=== PATIENT | female | born 1945 | race Caucasian/White ===

== ENCOUNTER 2019-09-21 19:10 | Inpatient (IN) | payer MEDICARE, BC ==
[2019-09-21] MEDS ORDERED: Morphine 4 MG/ML VIAL ONE (20:03)
[2019-09-21] MEDS ORDERED: Ketorolac Tromethamine 30 MG/ML VIAL ONE (20:12)
[2019-09-21] MEDS ORDERED: Acetaminophen 1,000 MG in Premix Bag 1 BAG IVPB SCH (20:15)
[2019-09-21] MEDS ORDERED: Dextrose 50% Abboject 50 ML SYRINGE SLOW IVP PRN (20:24)
[2019-09-21] MEDS ORDERED: hydrALAZINE 20 MG/ML VIAL SLOW IVP PRN (20:24)
[2019-09-21] MEDS ORDERED: Ondansetron PF 4 MG/2 ML Vial IVP PRN (20:24)
[2019-09-21] MEDS ORDERED: Dextrose 5% in Water 1,000 ML IV PRN (20:24)
[2019-09-21] MEDS ORDERED: Promethazine HCl 25 MG/ML VIAL IVPB PRN (20:24)
[2019-09-21] MEDS ORDERED: Morphine 2 MG/ML SYRINGE SLOW IVP PRN (20:24)
[2019-09-21] MEDS ORDERED: traMADol HCl 50 MG TAB PO PRN (20:27)
[2019-09-21] MEDS ORDERED: Cyclobenzaprine 10 MG TAB PO PRN (20:27)
[2019-09-21] MEDS ORDERED: Ondansetron PF 4 MG/2 ML Vial ONE (20:51)
[2019-09-21] MEDS: Acetaminophen 500 MG TAB PO SCH (22:45)
[2019-09-21] MEDS: Ibuprofen 600 MG TAB PO SCH (23:22)
[2019-09-21 23:25] VITALS: BMI 29.1
[2019-09-22] MEDS: Senokot S 8.6-50 MG TAB PO SCH ×3 (00:18→21:01)
[2019-09-22] MEDS: Acetaminophen 500 MG TAB PO SCH ×4 (03:40→21:01)
[2019-09-22] MEDS: Ibuprofen 600 MG TAB PO SCH ×3 (05:22→22:24)
[2019-09-22 05:36] LABS: #Eosinphils 0.1 thou/uL (0.0-0.7); #Lymphocytes 1.3 thou/uL (1.20-3.40); #Monocytes 0.5 thou/uL (0.11-0.59); #Neutrophils 3.9 thou/uL (1.40-6.50); %Basophils 0.2 % (0.0-1.0); %Eosinophils 1.1 % (0.0-10.0); %Lymphocytes 22.6 % (21.0-51.0); %Monocytes 8.3 % (0.0-10.0); %Neutrophils 67.8 % (42.0-75.0); Hemoglobin 11.3 g/dL (12.0-16.0); Mean Corpuscular HGB CONC 33.6 g/dL (32.0-36.0); Mean Corpuscular Hemoglobin 29.9 pg (27.0-31.0); Mean Corpuscular Volume 88.9 fL (78.0-98.0); Platelet Count 196 thou/uL (130-400); RBC Distribution Width 13.1 % (11.5-14.5); Red Blood Cell (RBC) Count 3.79 mill/uL (4.20-5.40); White Blood Cell (WBC) Count 5.7 thou/uL (4.8-10.8)
[2019-09-22 05:48] LABS: Anion Gap 11 mmol/L (10-20); BUN (Urea Nitrogen) 14 mg/dL (9.8-20.1); Calc. Creatinine Clearance 74 mL/min (70-130); Calcium 8.3 mg/dL (7.8-10.44); Carbon Dioxide 28 mmol/L (23-31); Chloride 107 mmol/L (98-107); Estimated GFR-MDRD 60; Glucose 84 mg/dL (83-110); Magnesium 1.8 mg/dL (1.6-2.6); Phosphorus 4.1 mg/dL (2.3-4.7); Potassium 3.6 mmol/L (3.5-5.1); Sodium 142 mmol/L (136-145)
[2019-09-22] MEDS ORDERED: Amiodarone 200 MG TAB PO SCH (09:00)
[2019-09-22] MEDS ORDERED: FLU VACC TS2019-20(65YR UP)/PF 180 MCG/0.5 ML SYRINGE IM ONE (09:00)
[2019-09-22] MEDS ORDERED: oxyCODONE/Acetaminophen 5 mg/325 mg Tablet PO PRN (09:03)
[2019-09-22] MEDS ORDERED: Tranexamic Acid 1,000 MG in Sodium Chloride 0.9% 100 ML IVPB SCH (09:15)
[2019-09-22] MEDS ORDERED: CEFAZOLIN 2 GM in Premix Bag 1 BAG IVPB SCH (09:15)
[2019-09-22] MEDS ORDERED: Vancomycin HCl 1.5 GM in Sodium Chloride 0.9% 250 ML 300 ML IVPB SCH (09:15)
[2019-09-22] MEDS: Levothyroxine Sodium 25 MCG TAB PO SCH (09:26)
[2019-09-22] MEDS: Polyethylene Glycol 3350 17 GM Packet PO SCH (09:26)
--- NOTE | 2019-09-22 09:40 | RAD ---
XR Hip Rt 2-3 View HISTORY: Hip injury COMPARISON: None. FINDINGS: There is a right femoral neck fracture, the fracture is more subcapital in location. The jose nicanor appear demineralized. IMPRESSION: Right femoral neck fracture.
--- NOTE | 2019-09-22 10:12 | CON ---
DATE OF CONSULTATION: 09/22/2019 This is Apryl Brian PA-C dictating a report for Ricky Bronson MD. REQUESTING PHYSICIAN: Trauma Services. CONSULTING PHYSICIAN: Ricky Bronson MD. REASON FOR CONSULTATION: Right hip fracture. HISTORY OF PRESENT ILLNESS: This is a 74-year-old female, who was cooking in the kitchen with her granddaughter last night when she fell off a small step stool, landing on her buttock and right hip. She presented to the [facility] by way of ground EMS. She was found to have what it has been reported as a right femoral neck fracture with displacement. She was transferred to our facility as she has requested Dr. Carrizales. Dr. Carrizales has worked on her , replacing multiple joints and he is well known to their family. Currently at bedside, the patient states that she has pain, relieved with rest that reported in her right hip. Past medical history includes atrial fibrillation, for which she takes Eliquis. Otherwise, she is pretty healthy. She states that Dr. Carrizales was contacted yesterday in [facility], but was out of town in [place]. Today, she is stating that she is happy for anyone to fix her hip at this time. No numbness or tingling. No head injury reported. No loss of consciousness. PAST MEDICAL HISTORY: Significant for atrial fibrillation. PAST SURGICAL HISTORY: Left wrist surgery, appendectomy, tonsillectomy, tubal ligation. SOCIAL HISTORY: The patient lives at home with her . She has a son and grandson nearby. She is a nonsmoker and nondrinker. She is retired. She independently ambulates. FAMILY HISTORY: Reviewed and noncontributory. REVIEW OF SYSTEMS: Ten-point review of systems conducted and otherwise negative except for stated above. PHYSICAL EXAMINATION: VITAL SIGNS: Temperature 98.3, pulse of 56, respiratory rate of 16, blood pressure 92/60, and O2 saturations 98% on 3 L nasal cannula. GENERAL: The patient is awake and alert. She is in no apparent distress. She is pleasant and cooperative with exam today. There is currently no family at bedside. HEENT: Head is normocephalic and atraumatic. NECK: Supple. Trachea midline. Breathing nonlabored. MUSCULOSKELETAL: Evaluation of bilateral lower extremities shows skin to be intact. Evaluation of the right hip shows no significant ecchymosis. Pain with log roll. She is able to move her knee and her foot and toes. Distal neurovascular status intact. DIAGNOSTIC STUDIES: Radiographic imaging from [facility] has been reported as a right femoral neck fracture with displacement. We have not been able to see these films. New films have been ordered at our facility, but have not been obtained at this time for review. ASSESSMENT: Reported right femoral neck fracture with displacement, currently waiting on current films at our facility. PLAN: At this time, we will wait until tomorrow for surgical intervention secondary to the patient's Eliquis status. We will plan for a right total hip replacement, given the patient's age and activity level, but we will wait to confirm that this is in fact a displaced right femoral neck fracture as reported. We will post her for surgery tomorrow. She will be n.p.o. after midnight tonight. Risks, benefits, and alternatives discussed at length with the patient today at bedside. She is amenable to this plan of care. Postoperatively, we will have rehab screen done. She is amenable to the above-mentioned plan of care. Job ID: [id number]
[2019-09-22] MEDS ORDERED: Cyclobenzaprine 10 MG TAB PO PRN (12:10)
[2019-09-22] MEDS: traMADol HCl 50 MG TAB PO SCH ×2 (12:16→17:28)
--- NOTE | 2019-09-22 12:47 | PRG ---
DATE OF SERVICE: 09/22/2019 SUBJECTIVE: This is a 74-year-old female, who had a mechanical fall off a small step stool, landing on her buttocks and right hip. The patient sustained a right femoral neck fracture with displacement. The patient is currently awake, alert, sitting up in hospital bed with moderate amount of pain. The patient does take Eliquis daily for atrial fibrillation. OBJECTIVE: VITAL SIGNS: Temperature 98.6, pulse 58, respirations 16, SpO2 of 97% on 3 L nasal cannula, blood pressure 108/68. GENERAL: Well-appearing, elderly female, moderate distress due to pain in the right hip 5/5. HEENT: Head is atraumatic and normocephalic. RESPIRATORY: Equal chest rise and fall. No respiratory distress. Good inspiratory and expiratory effort. EXTREMITIES: Distal pulses intact. Ecchymoses to right hip and tenderness to palpation. Movement and sensation intact in all extremities. LABORATORY DATA: There are no new labs to evaluate. DIAGNOSTICS: Right hip x-ray, impression; right femoral neck fracture, more subcapital in location. The bones appear demineralized. ASSESSMENT: 1. Mechanical fall from a small step stool. 2. Right femoral neck fracture with displacement. 3. Acute traumatic pain. 4. History of atrial fibrillation with chronic anticoagulation use, on Eliquis. 5. Hypothyroidism. PLAN: Continue supportive care. We will adjust the patient's pain regimen to optimize pain control. The patient can have a heart-healthy diet today, but will be placed n.p.o. at midnight for plans of repair of her right hip fracture with Orthopedic Surgery, Dr. Bronson. We will place the patient on maintenance fluids at midnight. We will place a PT/OT consult to evaluate and treat postop tomorrow. We will also place an inpatient rehab screen as the patient most likely will need additional physical therapy. We will continue the patient's amiodarone with hold parameters. The plan was discussed with the patient, who agrees. The plan was also discussed with Dr. Franco, who agrees. Job ID: [id number]
[2019-09-22] MEDS: traMADol HCl 50 MG TAB PO PRN (21:00)
[2019-09-23] MEDS ORDERED: Sodium Chloride 0.9% 1,000 ML IV SCH (00:01)
[2019-09-23] MEDS: traMADol HCl 50 MG TAB PO SCH ×5 (00:05→23:54)
[2019-09-23] MEDS: Acetaminophen 500 MG TAB PO SCH ×3 (02:20→21:19)
[2019-09-23] MEDS: Ibuprofen 600 MG TAB PO SCH (06:14)
--- NOTE | 2019-09-23 07:17 | HP ---
TRAUMA SURGEON: Dr. Franco. CONSULTING PHYSICIAN: Dr. Bronson. HISTORY OF PRESENT ILLNESS: The patient is a 74-year-old female, presented from [facility] after she had a mechanical fall off a step stool causing a right femoral neck fracture. The patient denies loss of consciousness or hitting her head. CT scan of the head was not completed. GCS is 15. The patient only complains of right hip pain. She reports that the fall was mechanical. She denied lightheadedness, near syncope or syncope before the incident. The patient does have a history of atrial fibrillation, is taking amiodarone and Eliquis. She is rhythm controlled at this time. REVIEW OF SYSTEMS: All additional review of systems negative except as indicated above. PAST MEDICAL HISTORY: Atrial fibrillation and hypothyroidism. PAST SURGICAL HISTORY: Appendectomy, tonsillectomy, tubal ligation, left wrist injury due to fracture. SOCIAL HISTORY: The patient lives at home with her . She denies tobacco, drug, or alcohol use. MEDICATIONS: 1. Amiodarone 200 daily. 2. Levothyroxine 25 mcg daily. 3. Eliquis 5 mg b.i.d. ALLERGIES: VICODIN. PHYSICAL EXAMINATION: VITAL SIGNS: Temperature 99.6, pulse 61, respirations 15, oxygen saturation 96% on 2 L nasal cannula, blood pressure 156/85. PRIMARY SURVEY: Airway intact. Adequate breath sounds bilaterally. 2+ pulses in the bilateral radials, femorals, and DPs. GCS 15. Gross motor and sensation are intact. No lacerations, bruising, or external bleeding. SECONDARY SURVEY: HEAD: Normocephalic and atraumatic. No gross palpable skull deformities or tenderness. EYES: Pupils 3-2, equal, round, reactive to light bilaterally. ENT: No hemotympanum. No epistaxis. No septal hematoma. Midface stable to manipulation. No blood in the oropharynx. Dentition is intact. No anterior neck injury/crepitus/tenderness. C-SPINE: No step-offs or deformities, nontender. C-collar not in place. CHEST: Nontender. No crepitus. No abrasions. No ecchymosis. Equal chest movement. ABDOMEN: Soft, nontender, and nondistended. PELVIS: Stable to palpation, nontender. No abrasions or ecchymosis. RECTAL: Deferred. GENITOURINARY: Deferred. EXTREMITIES: Right lower extremity is slightly shortened with tenderness over the right lateral thigh. No abrasions or ecchymosis noted. 2+ pulses in the bilateral radials, femorals, and DPs. BACK/SPINE: No step-offs, deformities, or tenderness to palpation of the thoracic or lumbar spine. No abrasions or ecchymosis noted. NEUROLOGIC: 5/5 strength in bilateral chucker, plantar flexion, and dorsiflexion. Gross normal sensation x4 extremities. LABORATORY FINDINGS: White count 6.2, hemoglobin 12.8, hematocrit 37.1, platelets 233. Sodium 139, potassium 3.3, chloride 105, bicarb 29, glucose 100, BUN 15, creatinine 1.0, magnesium 1.8. INR 1.9. UA negative. DIAGNOSTIC FINDINGS: Chest x-ray demonstrates no acute findings. X-ray of the right hip demonstrates right femoral neck fracture. ASSESSMENT: 1. Status post mechanical fall from step stool. 2. Right femoral neck fracture. 3. Acute traumatic pain. 4. History of atrial fibrillation, currently on Eliquis, and hypothyroidism. PLAN: The patient will be admitted to the surgical floor under the trauma team. Orthopedic Surgery has been consulted and they are recommending surgical fixation on Monday due to the patient taking Eliquis. We will restart to follow all of her home medications except for Eliquis. She will receive a heart healthy diet and she will be n.p.o. at midnight tomorrow with normal saline at 75 an hour until she goes to the OR. We will provide both scheduled and p.r.n. pain medications. She is strict bedrest until she is postoperative. At that time, she will work with Physical and Occupational Therapy. The patient is requesting an orthopedic surgeon from Dr. Carrizales's group. Trauma team will reach out to the surgeon on-call from that group to see if they are able to perform the surgery on Monday. We will also pass this information on to Dr. Bronson who is the trauma ortho surgeon on-call this weekend and coordinate care with the orthopedic surgery team as well. This patient was discussed with Dr. Franco before this dictation. Job ID: [id number]
--- NOTE | 2019-09-23 07:47 | HP ---
ADDENDUM: This is an addendum to the H and P dictated by Sirena Hernandez trauma ENZO. For full details, please see her H and P. In short, Ms. Lundy is a healthy 74-year-old woman, who fell off a little step stool on her kitchen landing on her right hip and sustaining a femoral neck fracture. She is on Eliquis for atrial fibrillation and is admitted to the hospital awaiting surgery. She is having some pain in right hip area, but not enough that she felt she requires pain medication. She denies any pain elsewhere or any other injuries. PAST MEDICAL HISTORY: Hypothyroidism and atrial fibrillation. PAST SURGICAL HISTORY: Appendectomy, tubal ligation, surgery for left wrist fracture, and tonsillectomy. MEDICATIONS: She takes 1. Eliquis. 2. Amiodarone. 3. Multivitamin. 4. Levothyroxine at home. ALLERGIES: SHE DOES NOT HAVE ANY ALLERGIES, BUT HAS AN ADVERSE DRUG REACTION TO HYDROCODONE, WHICH CAUSES ITCHING FAMILY HISTORY: Noncontributory. REVIEW OF SYSTEMS: 10 system review of systems is negative except per history of present illness SOCIAL HISTORY: She does not smoke, drink, or use illicit drugs, and she lives with her , who is ambulatory and functional and able to help her with her activities of daily living. She also has a son and grandson, who live just a couple doors down and are available to help. PHYSICAL EXAMINATION: Complete physical examination was performed today. No additional injuries or abnormalities were found except for the tenderness in the right hip area. She has normal pedal pulses and normal distal strength and sensation. No significant foreshortening or rotation. LABORATORY DATA: Labs are unremarkable, and her hip x-ray shows a right femoral neck fracture, which is subcapital in location. ASSESSMENT: Right femoral neck fracture, awaiting resolution of anticoagulation off Eliquis. She goes to the operating room tomorrow for repair. She has been seen by Orthopedic, and all of her questions regarding her upcoming surgery have been answered. We will continue her amiodarone and Synthroid and resume anticoagulation postoperatively when it is deemed safe to do so. Job ID: [id number] MTDD
[2019-09-23 08:23] LABS: #Eosinphils 0.1 thou/uL (0.0-0.7); #Monocytes 0.4 thou/uL (0.11-0.59); #Neutrophils 4.3 thou/uL (1.40-6.50); %Basophils 0.2 % (0.0-1.0); %Eosinophils 1.4 % (0.0-10.0); %Lymphocytes 16.5 % (21.0-51.0); Hemoglobin 11.7 g/dL (12.0-16.0); Mean Corpuscular HGB CONC 33.2 g/dL (32.0-36.0); Mean Corpuscular Hemoglobin 29.6 pg (27.0-31.0); Mean Platelet Volume 6.3 fL (7.4-10.4); Platelet Count 153 thou/uL (130-400); RBC Distribution Width 12.8 % (11.5-14.5); Red Blood Cell (RBC) Count 3.94 mill/uL (4.20-5.40); White Blood Cell (WBC) Count 5.8 thou/uL (4.8-10.8)
[2019-09-23 08:36] LABS: Anion Gap 12 mmol/L (10-20); BUN (Urea Nitrogen) 13 mg/dL (9.8-20.1); Calc. Creatinine Clearance 87 mL/min (70-130); Calcium 8.6 mg/dL (7.8-10.44); Carbon Dioxide 27 mmol/L (23-31); Chloride 106 mmol/L (98-107); Estimated GFR-MDRD 73; Glucose 81 mg/dL (83-110); Magnesium 1.5 mg/dL (1.6-2.6); Phosphorus 3.9 mg/dL (2.3-4.7); Potassium 3.9 mmol/L (3.5-5.1); Sodium 141 mmol/L (136-145)
[2019-09-23 08:44] LABS: PTT 35.5 SEC (22.9-36.1); Prothrombin Time 12.9 SEC (12.0-14.7)
[2019-09-23] MEDS: Levothyroxine Sodium 25 MCG TAB PO SCH (08:46)
[2019-09-23] MEDS: Amiodarone 200 MG TAB PO SCH (08:46)
[2019-09-23] MEDS ORDERED: Amiodarone 200 MG TAB PO SCH (09:00)
[2019-09-23] MEDS: Polyethylene Glycol 3350 17 GM Packet PO SCH (09:03)
[2019-09-23] MEDS: Senokot S 8.6-50 MG TAB PO SCH ×2 (09:04→21:18)
--- NOTE | 2019-09-23 09:35 | PRG ---
DATE OF SERVICE: 09/22/2019 SUBJECTIVE: Patient was seen this evening during rounds. She was lying in bed with no signs of acute distress. She reported although receiving pain medications that her pain was still a 5/5 and was requesting additional pain medications. Tolerating her diet. OBJECTIVE: VITAL SIGNS: Temperature 98.9, pulse 63, respirations 16, oxygen saturation 95% on room air, and blood pressure 137/77. GENERAL: Well-appearing elderly female, lying in bed with no signs of acute distress. PULMONARY: Equal chest rise and fall. No signs of acute respiratory distress. ASSESSMENT: 1. Status post mechanical fall off a step stool on Eliquis. 2. Right femoral neck fracture. 3. History of atrial fibrillation and hypothyroidism. PLAN: Continue current pain regimen. We will give the patient p.r.n. tramadol that already been prescribed. Patient is n.p.o. at midnight. She is going to the OR tomorrow with Orthopedic Surgery for fixation of her right femoral neck fracture. She will have normal saline at 75 an hour to start this evening. She has a Poole as well. Postoperatively, she will work with Physical and Occupational Therapy. She will likely need placement in an acute rehab facility. Job ID: [id number]
[2019-09-23] MEDS ORDERED: ePHEDrine/0.9% NaCl/PF SYRINGE 50 mg/10 ml ONE (10:10)
[2019-09-23] MEDS ORDERED: PROPOFOL 200 MG/20 ML VIAL ONE (10:10)
[2019-09-23] MEDS ORDERED: Rocuronium Bromide 10 MG/ML (10ML VIAL) ONE (10:10)
[2019-09-23] MEDS ORDERED: diphenhydrAMINE 25 MG CAP PO PRN (11:11)
[2019-09-23] MEDS ORDERED: Zolpidem Tartrate 5 MG TAB PO PRN (11:11)
[2019-09-23] MEDS ORDERED: Ondansetron PF 4 MG/2 ML Vial IVP PRN (11:11)
[2019-09-23] MEDS ORDERED: Promethazine HCl 25 MG/ML VIAL IM PRN (11:11)
[2019-09-23] MEDS ORDERED: Fentanyl 100 MCG/2 ML VIAL SLOW IVP PRN ×2 (11:11)
[2019-09-23] MEDS ORDERED: Acetaminophen 325 MG TAB PO PRN (11:11)
[2019-09-23] MEDS ORDERED: Fentanyl 100 MCG/2 ML VIAL ONE ×2 (11:33→14:07)
[2019-09-23] MEDS ORDERED: Lidocaine 2% Jelly 5 ML TUBE ONE (11:34)
[2019-09-23] MEDS ORDERED: Ropivacaine 0.2% HCl/PF 0 ML ONE (11:41)
[2019-09-23] MEDS ORDERED: Vancomycin 1.5 GRAM/300 ML BAG 1.5 GM in Premix Bag 1 BAG IVPB SCH (12:00)
[2019-09-23] MEDS: Ketorolac Tromethamine 30 MG/ML VIAL IM SCH ×2 (14:14→21:19)
--- NOTE | 2019-09-23 14:27 | PRG ---
DATE OF SERVICE: 09/23/2019 SUBJECTIVE: This is a 74-year-old lady, who fell off a small stepstool landing onto her right hip. The patient is awake, alert, lying in hospital bed, in no acute distress. The patient is pending surgery for repair of her right femoral neck fracture. The patient has been n.p.o. over midnight with maintenance IV fluids. The patient's pain is well controlled at this time. The patient voices no complaints or concerns. OBJECTIVE: VITAL SIGNS: Temperature 98.3, pulse 63, respirations 20, SpO2 of 97% on room air, blood pressure 150/83. GENERAL: Well-appearing elderly female, lying in hospital bed, in no acute distress. PULMONARY: Equal chest rise and fall, no respiratory distress, good inspiratory and expiratory effort. CARDIAC: Regular rate, regular rhythm. EXTREMITIES: Moves all extremities, distal pulses are intact, tenderness to right hip. LABORATORY DATA: WBC 5.8, RBC 3.94, hemoglobin 11.7, hematocrit 35.1, platelets 153. PT 12.9, INR 1.0, APTT 35.5. Sodium 141, potassium 3.9, chloride 106, BUN 13, creatinine 0.78, estimated GFR 73, glucose 81, calcium 8.6, phosphorus 3.9, magnesium 1.5. DIAGNOSTICS: There are no new diagnostics to review today. ASSESSMENT: 1. Status post mechanical fall off a stepstool, on Eliquis. 2. Right femoral neck fracture. 3. Acute traumatic pain. 4. Hypomagnesium. 5. History of atrial fibrillation and hypothyroidism. PLAN: Continue pain regimen and supportive care. We will replace electrolytes. The patient is n.p.o. pending Orthopedic Surgery for repair of her right femoral neck fracture this morning. We will have Physical and Occupational Therapy work with the patient postop. A rehab screen has been placed as the patient will likely need placement for continued physical and occupational therapy. We will continue mechanical DVT prophylaxis and start chemical DVT prophylaxis postop once hemoglobin and hematocrit are stable. The patient was evaluated by Dr. Russell, during morning rounds. The plan was discussed with the patient, who agrees. Job ID: [id number]
[2019-09-23] MEDS ORDERED: Promethazine HCl 25 MG/ML VIAL ONE (14:29)
[2019-09-23] MEDS ORDERED: Magnesium 2 GM/50 ML 2 GM in Premix Bag 1 BAG IVPB SCH (14:30)
--- NOTE | 2019-09-23 14:37 | RAD ---
XR Hip Rt 2-3 View History: Postop total hip Comparison: Hip radiograph prior day Findings: Satisfactory alignment right hip arthroplasty. Expected postoperative gas and edema. Impression: Satisfactory postoperative appearance.
[2019-09-23] MEDS ORDERED: Aspirin 81 mg Enteric Coated Tablet PO SCH (21:00)
[2019-09-23] MEDS: Ferrous Gluconate 324 MG TAB PO SCH (21:18)
--- NOTE | 2019-09-24 01:27 | PRG ---
DATE OF SERVICE: 09/23/2019 SUBJECTIVE: The patient was seen this evening, lying in bed with no signs of acute distress. She was postoperative day 1 after fixation of a right femoral neck fracture. She reports her pain is moderately controlled and reported she would like additional pain medication. She tolerated diet postoperatively. Poole is still in place. OBJECTIVE: VITAL SIGNS: Temperature 98.6, pulse 75, respirations 20, oxygen saturation 96% on 1.5 L nasal cannula, and blood pressure 116/83. GENERAL: Well-appearing elderly female, sitting up in bed with no signs of acute distress. PULMONARY: Equal chest rise and fall. Clear breath sounds bilaterally. No signs of acute respiratory distress. CARDIAC: Regular rate and rhythm. GI/ABDOMEN: Soft, nontender, nondistended. EXTREMITIES: 2+ pulses in all extremities. Gross motor and sensation are intact. No significant swelling noted. NEURO: GCS is 15. ASSESSMENT: 1. Status post mechanical fall from a stool, on Eliquis. 2. Right femoral neck fracture, status post total hip replacement. 3. History of atrial fibrillation and hypothyroidism. PLAN: Continue current diet and pain regimen. We will discontinue IV fluids. The patient is started on aspirin b.i.d. by Orthopedic Surgery. We will transition back to Eliquis over the next couple of days. She takes Eliquis at home. We will discontinue the Poole catheter in the morning. She is pending rehab placement. Job ID: [id number]
[2019-09-24] MEDS: Acetaminophen 500 MG TAB PO SCH ×4 (03:16→21:42)
[2019-09-24] MEDS: traMADol HCl 50 MG TAB PO PRN ×2 (03:16→14:21)
[2019-09-24] MEDS: traMADol HCl 50 MG TAB PO SCH ×3 (05:36→19:39)
[2019-09-24 05:37] LABS: #Eosinphils 0.1 thou/uL (0.0-0.7); #Lymphocytes 1.1 thou/uL (1.20-3.40); #Monocytes 0.4 thou/uL (0.11-0.59); #Neutrophils 3.1 thou/uL (1.40-6.50); %Basophils 0.1 % (0.0-1.0); %Eosinophils 1.7 % (0.0-10.0); %Lymphocytes 23.8 % (21.0-51.0); %Monocytes 8.9 % (0.0-10.0); %Neutrophils 65.5 % (42.0-75.0); Hemoglobin 9.3 g/dL (12.0-16.0); Mean Corpuscular HGB CONC 34.6 g/dL (32.0-36.0); Mean Corpuscular Hemoglobin 30.6 pg (27.0-31.0); Mean Corpuscular Volume 88.6 fL (78.0-98.0); Mean Platelet Volume 6.2 fL (7.4-10.4); Platelet Count 153 thou/uL (130-400); RBC Distribution Width 12.8 % (11.5-14.5); Red Blood Cell (RBC) Count 3.03 mill/uL (4.20-5.40); White Blood Cell (WBC) Count 4.7 thou/uL (4.8-10.8)
[2019-09-24] MEDS: Ketorolac Tromethamine 30 MG/ML VIAL IM SCH (05:37)
[2019-09-24 06:05] LABS: Anion Gap 9 mmol/L (10-20); BUN (Urea Nitrogen) 12 mg/dL (9.8-20.1); Calc. Creatinine Clearance 86 mL/min (70-130); Calcium 8.1 mg/dL (7.8-10.44); Carbon Dioxide 29 mmol/L (23-31); Chloride 104 mmol/L (98-107); Estimated GFR-MDRD 72; Glucose 81 mg/dL (83-110); Magnesium 1.9 mg/dL (1.6-2.6); Phosphorus 3.9 mg/dL (2.3-4.7); Potassium 3.8 mmol/L (3.5-5.1); Sodium 138 mmol/L (136-145)
[2019-09-24] MEDS ORDERED: Ibuprofen 200 MG TAB PO PRN (08:43)
--- NOTE | 2019-09-24 08:46 | OP ---
DATE OF PROCEDURE: 09/23/2019 PREOPERATIVE DIAGNOSIS: Right femoral neck fracture. POSTOPERATIVE DIAGNOSIS: Right femoral neck fracture. PROCEDURE PERFORMED: Right total hip arthroplasty using [place] Accolade II #4 stem with a standard neck 132 angle, 36 mm standard head, PSL cup 50 mm, and 36 mm X3 liner. NEUROLOGY TECHNOLOGIST: Apryl Brian PA-C BLOOD LOSS: 300. SPECIMEN: None. DRAIN: None. COMPLICATION: None. PROCEDURE IN DETAIL: After informed consent was obtained in the preoperative holding area, the patient was taken to the operative suite where general anesthesia was induced. The patient was then positioned in the lateral decubitus position. The hip was then prepped and draped in usual sterile fashion. The patient received preoperative antibiotics. Prior to incision, time-out was called and all members of the surgical team agreed upon site, surgeon, and patient. After this, a longitudinal incision was made directly over the trochanter, noted by palpation extending 2 fingerbreadths above and below the trochanter. The deeper subcutaneous layer was undermined with Bovie electrocautery. The iliotibial band was encountered and incised sharply and the plane below this was developed bluntly. A Charnley retractor was placed to hold this opened. The lateral aspect of the trochanter and the abductor muscles were encountered and then reflected anteriorly off the trochanter using Bovie electrocautery. Once this was completed, the anterior capsule was then encountered and identified and copious capsulotomy was carried out, exposing the femoral neck and head. Dislocation maneuver was then performed and an in situ provisional neck cut was then made using the oscillating saw. Attention was then turned to acetabular preparation and sequential reaming was carried out up to the appropriate diameter. A trial was then malleted into place with good firm resistance and no pullout. The permanent acetabular shell was then malleted squarely into place, as was the appropriate liner. Once completed, the wound was copiously irrigated and attention was then turned to femoral preparation. Flexion and external rotation were performed of the exposed thigh and femoral elevators were then placed at the proximal aspect of the wound. Canal finder was used to establish the length of the canal and sequential reaming was carried out, followed by broaching. Once the appropriate stability was established with the trial broaches with flexion, extension and rotational stability, we did trial with neutral and 2 mm offset incremental necks. Once the appropriate size was decided upon, with good stability noted with flexion, extension, internal and external rotation and shuck being negative, we removed the femoral trial broach and malletted into place the permanent prosthesis with good firm fit, which was also stable to rotation. Again, the hip felt very stable to flexion, extension, internal and external rotation. Leg lengths appeared near anatomic clinically and we were quite happy with prosthesis placement. Copious irrigation was then carried out through the entirety of the wound. Primary closure of the abductors was accomplished with interrupted #2 Vicryl [id number] stitches and the IT band was then closed with interrupted #2 Vicryl, oversewn with a #2 running barbed Quill stitch. Subcutaneous fascia was closed with running barbed Quill stitch and a subcuticular Monocryl barbed Quill stitch was used for skin closure and augmented with skin cement. A sterile dressing was applied. The procedure was terminated without any complication. All counts were correct. The patient was awakened in the operative suite and taken to the recovery room in stable condition. Job ID: [id number]
[2019-09-24] MEDS ORDERED: Magnesium Sulfate 2 GM, Potassium Chloride 40 MEQ in Sodium Chloride 0.9% 250 ML 250 ML IVPB SCH (09:00)
[2019-09-24] MEDS: Apixaban 5 MG TAB PO SCH ×2 (09:04→20:36)
[2019-09-24] MEDS: Multivitamin W/ Minerals 1 TAB PO SCH (09:04)
[2019-09-24] MEDS: Ferrous Gluconate 324 MG TAB PO SCH ×2 (09:04→21:42)
[2019-09-24] MEDS: Levothyroxine Sodium 25 MCG TAB PO SCH (09:04)
[2019-09-24] MEDS: Polyethylene Glycol 3350 17 GM Packet PO SCH (09:05)
[2019-09-24] MEDS: Amiodarone 200 MG TAB PO SCH (09:05)
[2019-09-24] MEDS: Senokot S 8.6-50 MG TAB PO SCH ×2 (09:05→21:42)
[2019-09-24] MEDS ORDERED: Sodium Chloride 0.9% 250 ML IV SCH (10:15)
--- NOTE | 2019-09-24 10:54 | PRG ---
DATE OF SERVICE: 09/24/2019 SUBJECTIVE: The patient is a 74-year-old female, who fell off a small step stool landing onto her right hip. The patient was seen this morning, lying in bed with no signs of acute distress. She is postoperative day 1 after open reduction internal fixation of a right femoral neck fracture. The patient reports her pain is well controlled. She voices no specific complaints. She has been able to tolerate a diet postoperatively. Poole is still in place. Physical therapy was in the room at the time of evaluation and said the patient is having good progress. Therapist does report that the patient had some low normal blood pressures when working with therapy this morning. OBJECTIVE: VITAL SIGNS: Temperature 98.7 Fahrenheit, blood pressure 116/71, pulse 62, respirations 18, and O2 saturation 97% on 2 L nasal cannula. GENERAL: Well-appearing elderly female, lying in bed with no signs of acute distress. PULMONARY: Equal chest rise and fall. No respiratory distress. Good inspiratory and expiratory effort. EXTREMITIES: Moves all extremities. Gross motor and sensation are intact. No significant swelling noted. NEUROLOGIC: GCS is 15. LABORATORY DATA: WBC 4.7, RBC 3.03, hemoglobin 9.3, hematocrit 26.8, and platelets 153. Sodium 138, potassium 3.8, chloride 104, carbon dioxide 29, BUN 12, creatinine 0.79, estimated GFR 72, glucose 81, calcium 8.1, phosphorus 3.9, magnesium 1.9. ASSESSMENT: 1. Status post mechanical fall of a step stool, on Eliquis. 2. Right femoral neck fracture, status post total hip replacement. 3. History of atrial fibrillation and hypothyroidism. PLAN: Continue current diet and pain regimen. The patient is currently on aspirin b.i.d. by Orthopedic surgery, we will transition her back to home Eliquis today and discontinue the aspirin at this time. Continue to have Physical and Occupational Therapy work with the patient. A rehab screen has been placed. The patient will be started on Mighty Shakes by recommendation of dietary. We will give the patient a 250 mL IV fluid bolus given low BP while working with Physical Therapy this morning. Anticipate discharge to rehab once placement is made soon. Patient was seen and examined by Dr. Russell during morning rounds. Discussed plan of care with patient who is in agreement. Job ID: [id number] [facility]
[2019-09-24] MEDS ORDERED: Gabapentin 300 MG CAP PO SCH (22:30)
[2019-09-25] MEDS: traMADol HCl 50 MG TAB PO SCH ×3 (00:05→12:18)
--- NOTE | 2019-09-25 01:25 | PRG ---
DATE OF SERVICE: 09/24/2019 SUBJECTIVE: Ms. Lundy is a 74-year-old female status post mechanical fall, on Eliquis. She sustained right femoral neck fracture, status post total hip replacement. She also has a history of AFib and hypothyroid. Patient reports she has been doing good after the surgery. Her vital signs have been stable. Her pain is well controlled. However, she had experienced some nausea in which she was given Zofran and famotidine. She feels a little bit better right now. Other than that, she has no pain or headache. OBJECTIVE: GENERAL: Currently, patient is lying on bed comfortable with no acute respiratory distress. VITAL SIGNS: Stable. LUNGS: Clear bilaterally. HEART: Regular rate and rhythm. PLAN: We will continue supportive care. Continue pain control. Encourage working with PT, OT tomorrow. Patient raised voice that she wanted to go home with home health. Patient reports that her had hip surgery before and they managed to staying at home and she also said that she gets help from her grandson and her son in which they live nearby and they can able to help them pretty easy. Anticipate placement either home or rehab facility. We will be waiting for answer from Physical Therapy whether patient is safe to go home. Anticipate patient going home in the next 24 to 48 hours. Job ID: [id number]
[2019-09-25] MEDS: Acetaminophen 500 MG TAB PO SCH ×4 (04:17→19:49)
[2019-09-25] MEDS ORDERED: Levothyroxine Sodium 25 MCG TAB PO SCH (06:00)
[2019-09-25 06:14] LABS: #Eosinphils 0.1 thou/uL (0.0-0.7); #Monocytes 0.5 thou/uL (0.11-0.59); #Neutrophils 3.7 thou/uL (1.40-6.50); %Basophils 0.1 % (0.0-1.0); %Eosinophils 1.1 % (0.0-10.0); %Lymphocytes 18.2 % (21.0-51.0); %Monocytes 9.8 % (0.0-10.0); %Neutrophils 70.9 % (42.0-75.0); Hemoglobin 9.3 g/dL (12.0-16.0); Mean Corpuscular HGB CONC 33.5 g/dL (32.0-36.0); Mean Corpuscular Hemoglobin 30.3 pg (27.0-31.0); Mean Corpuscular Volume 90.5 fL (78.0-98.0); Mean Platelet Volume 6.4 fL (7.4-10.4); Platelet Count 190 thou/uL (130-400); RBC Distribution Width 12.9 % (11.5-14.5); Red Blood Cell (RBC) Count 3.07 mill/uL (4.20-5.40); White Blood Cell (WBC) Count 5.3 thou/uL (4.8-10.8)
[2019-09-25 06:38] LABS: Anion Gap 11 mmol/L (10-20); BUN (Urea Nitrogen) 12 mg/dL (9.8-20.1); Calc. Creatinine Clearance 89 mL/min (70-130); Calcium 8.3 mg/dL (7.8-10.44); Carbon Dioxide 27 mmol/L (23-31); Chloride 105 mmol/L (98-107); Estimated GFR-MDRD 75; Glucose 109 mg/dL (83-110); Phosphorus 2.5 mg/dL (2.3-4.7); Potassium 4.5 mmol/L (3.5-5.1); Sodium 138 mmol/L (136-145)
[2019-09-25] MEDS ORDERED: Gabapentin 300 MG CAP PO SCH (09:00)
[2019-09-25] MEDS: Senokot S 8.6-50 MG TAB PO SCH ×2 (09:07→19:49)
[2019-09-25] MEDS: Polyethylene Glycol 3350 17 GM Packet PO SCH (09:07)
[2019-09-25] MEDS: Multivitamin W/ Minerals 1 TAB PO SCH (09:08)
[2019-09-25] MEDS: Apixaban 5 MG TAB PO SCH ×2 (09:08→19:50)
[2019-09-25] MEDS: Ferrous Gluconate 324 MG TAB PO SCH ×2 (09:08→19:49)
[2019-09-25] MEDS: Amiodarone 200 MG TAB PO SCH (09:08)
--- NOTE | 2019-09-25 11:09 | PRG ---
DATE OF SERVICE: 09/25/2019 SUBJECTIVE: The patient is a 74-year-old female, who fell off a small steps to landing onto her right hip. The patient was seen this morning during rounds, lying in bed with no signs of acute distress. She is postoperative day two after open reduction and internal fixation of right femoral neck fracture. The patient reports her pain is well controlled and she voices no specific complaints. She has been able to tolerate a diet postoperatively. She did have a few low-normal blood pressures yesterday. She was given a 250 mL IV fluid bolus and subsequent blood pressures have been in normal range. The patient voices that she is open to going to a rehab facility for continued therapy. She understands that she will need continued physical therapy for the near future before she is able to fully return home. OBJECTIVE: VITAL SIGNS: Temperature 98.3 Fahrenheit, blood pressure 116/74, pulse 66, respirations 14, O2 saturation 98% on room air. GENERAL: A well-appearing elderly female, lying in bed with no signs of acute distress. PULMONARY: Equal chest rise and fall. No respiratory distress. Good inspiratory and expiratory effort. EXTREMITIES: Moves all extremities. Gross motor and sensation are intact. NEUROLOGIC: No focal deficits. GCS is 15. LABORATORY STUDIES: WBC 5.3, hemoglobin 9.3, hematocrit 27.8, platelets 190. Sodium 138, potassium 4.5, chloride 105, carbon dioxide 27, BUN 12, creatinine 0.76, estimated GFR 75, glucose 109, calcium 8.3, phosphorus 2.5, magnesium 2.0. Cortisol 17.0. ASSESSMENT: 1. Status post mechanical fall of a step stool, on Eliquis. 2. Right femoral neck fracture, status post total hip replacement, day #2. 3. History of atrial fibrillation and hypothyroidism. PLAN: Continue supportive care, current diet, pain control. Encourage patient to continue working with Physical Therapy and Occupational Therapy. Rehab screen has been placed, anticipate the patient will likely [facility] later today or tomorrow. The patient was seen and examined by Dr. Russell during morning rounds. Discussed plan of care with the patient, who is in agreement. Job ID: [id number]
[2019-09-25 19:20] VITALS: BP 92/60; TEMP 97.9
[2019-09-25] MEDS ORDERED: Ibuprofen 600 MG TAB PO SCH (22:00)
--- NOTE | 2019-09-27 02:02 | DIS ---
DATE OF ADMISSION: 09/21/2019 DATE OF DISCHARGE: 09/25/2019 ADMITTING ATTENDING: Flaquito Russell DO CONSULTATIONS: 1. Orthopedic surgery, Dr. Ricky Bronson. 2. Case management. 3. Physical Therapy. 4. Occupational Therapy. 5. Rehab screening. PROCEDURES: 1. Open reduction, internal fixation of right hip on September 23, [address] Bronson. 2. Hip x-ray on September 22, 2019: Right femoral neck fracture. 3. Hip x-ray on September 23, 2019: Satisfactory alignment of right hip arthroplasty. Expected postoperative gas and edema. Satisfactory postoperative appearance. PRIMARY DIAGNOSIS: Status post mechanical fall of a step stool, on Eliquis. SECONDARY DIAGNOSES: 1. Right femoral neck fracture, status post total hip replacement. 2. Hypothyroidism. 3. History of atrial fibrillation. DISCHARGE MEDICATIONS: 1. Levothyroxine 25 mcg p.o. daily. 2. Multivitamin 1 tab p.o. daily. 3. Apixaban (Eliquis) 5 mg p.o. b.i.d. 4. Amiodarone 200 mg p.o. daily. 5. Acetaminophen 1000 mg p.o. q.6 hours. 6. Ferrous gluconate 324 mg p.o. b.i.d. 7. Gabapentin 300 mg p.o. b.i.d. 8. MiraLAX 17 g p.o. daily. 9. Senakot 2 tabs p.o. b.i.d. 10. Tramadol 50 mg p.o. q.6 hours p.r.n. DISCONTINUED MEDICATIONS: 1. Morphine 4 mg p.r.n. 2. Ketorolac 30 mg IM. 3. Ondansetron 4 mg IVP q.6 hours p.r.n. 4. Promethazine 12.5 mg IVPB q.4 hours p.r.n. 5. Flexeril 10 mg p.o. t.i.d. p.r.n. 6. Ibuprofen 600 mg p.o. q.8 hours p.r.n. 7. Vancomycin HCL 1.5 g x2 doses. 8. Lactulose 30 g p.o. x1 dose. HISTORY OF PRESENT ILLNESS/HOSPITAL COURSE: The patient is a 74-year-old female who presented as a transfer from the [facility] after she had a mechanical fall of a step stool causing a right femoral neck fracture. The patient denied any loss of consciousness or hitting her head at that time. On arrival, her GCS was 15 and she complained only of right hip pain. She denied any lightheadedness, near-syncope, or syncope before the incident. The patient does have a history of atrial fibrillation for which she is taking amiodarone and Eliquis. The patient was admitted to the surgical floor under the trauma team. Orthopedic surgery was consulted and they recommended a surgical fixation. Due to the patient taking Eliquis, this surgery was not scheduled until 2 days later. In the meantime, she worked with Physical and Occupational Therapy. On September 23, 2019, the patient had an open reduction internal fixation of the right hip performed by Dr. Bronson. The patient tolerated the procedure well. She was re-evaluated by Physical and Occupational Therapy and continued progressing well with therapy after her surgery. Overall, her pain was well controlled throughout her stay and she left on only oral pain medications. The patient had a rehab screen completed and she was ultimately approved for placement in inpatient rehab facility. On the morning of September 25, 2019, the patient was deemed stable for transfer to a rehab facility for continued therapy. DISPOSITION: Stable. DISCHARGE INSTRUCTIONS: 1. Location: Inpatient rehab. 2. Diet: Regular. 3. Activity: With orthopedic limitations to include weightbearing as tolerated. 4. Follow up with primary care provider in 3 to 5 days for hospital followup. 5. Follow up with Dr. Ricky Bronson in 10 days. 6. Continue physical therapy and occupational therapy at rehab facility. Job ID: [id number]
== END 2019-09-25 20:50 | DRG 470 ==
LOC: ERS 19:10 → SURG A 19:55
PROVIDERS: ADMIT Surgery; ATTEND Surgery
PROC: 0SR90JZ Replacement of Right Hip Joint with Synthetic Substitute, Open Approach (ICD-10-PCS; principal; 2019-09-23)
DX: S72.001A Fracture of unspecified part of neck of right femur, initial encounter for closed fracture (principal); I48.91 Unspecified atrial fibrillation; R40.2412 Glasgow coma scale score 13-15, at arrival to emergency department; E03.9 Hypothyroidism, unspecified; G89.11 Acute pain due to trauma; E83.42 Hypomagnesemia; Z88.5 Allergy status to narcotic agent; Z79.01 Long term (current) use of anticoagulants; Z98.51 Tubal ligation status; W17.89XA Other fall from one level to another, initial encounter; Y93.89 Activity, other specified; Y92.090 Kitchen in other non-institutional residence as the place of occurrence of the external cause
CPT/HCPCS: 36415; 80048; 82533; 83735; 84100; 85025; 85610; 85730; 96365; 96375; C1776; J0131; J0690; J1885; J2270; J2405; J2550; J2704; J2795; J3010; J3475; J3480; J7050

== ENCOUNTER 2023-04-28 09:43 | Day surgery (SDC) | payer MEDICARE ==
[2023-04-27 10:23] VITALS: BMI 27.8
[2023-04-28] MEDS ORDERED: Lidocaine 1% PF 5 ML VIAL ONE (12:00)
[2023-04-28] MEDS ORDERED: PROPOFOL 200 MG/20 ML VIAL ONE (12:00)
[2023-04-28] MEDS ORDERED: Ondansetron PF 4 MG/2 ML Vial ONE (12:00)
[2023-04-28] MEDS ORDERED: Dexamethasone 20 MG/5 ML VIAL ONE (12:00)
[2023-04-28] MEDS ORDERED: hydrALAZINE 20 MG/ML VIAL ONE (14:21)
== END 2023-04-28 14:58 | disposition home or self-care (01) ==
LOC: SDC/OP 09:43
PROVIDERS: ATTEND Orthopaedic Surgery
DX: M54.16 Radiculopathy, lumbar region (principal); I48.91 Unspecified atrial fibrillation; E03.9 Hypothyroidism, unspecified; Z96.641 Presence of right artificial hip joint; Z90.49 Acquired absence of other specified parts of digestive tract; Z90.89 Acquired absence of other organs; Z79.01 Long term (current) use of anticoagulants; Z79.890 Hormone replacement therapy; Z88.5 Allergy status to narcotic agent
CPT/HCPCS: 72148; J0360; J1100; J2405; J2704